=== PATIENT | male | born 1960 | race Hispanic/Latino ===

== ENCOUNTER 2020-12-14 16:03 | Outpatient (AMBR) | payer MEDICAID, SELFPAY ==
--- NOTE | 2020-12-10 10:40 | PTNOTE_ITS ---
PT OP Initial Eval Patient Information Visit Reasons: Thoracic Spondylosis Medical Diagnosis: M47.814 Treatment Dx #1: back pain Date of Onset: 15 yrs ago Initial Assessment Subjective Pt is 60 yr old male who reports onset of thoracolumbar kyphosis that started about 15 yrs ago. He reports that it is not working for many years due to this problem and he is unable to lift things and most movements are difficult or impossible. ADL's such as dressing, HH chores he is unable to do. PMH: lumbar disc problems Imaging: he brought Xray and MRI discs to review Pt goal: how to stop the progress and how to improve it. Objective Thoracolumbar ArOM: FB: 4 from floor Extension: stuck in kyphosis Strength: quads:4+/5 HS: 4+/5 Observation: T/L is kyphotic TTP: moderate of L/S paraspinals Assessment Pt presents with T/L spine reversed curve into kyphosis and limited extension ROM. Pt requires skilled therapy in order to decrease pain and improve ROM. Short Term and Senior Living Goals 1. Ind with HEP 2. Improved trunk extension ROM to neutral in standing 3. Decreased TTP of L/S paraspinals from mod to min Treatment Plan 1. Manual therapy 2. Therex 3. Modalities as indicated, moist heat pack, ice, electrical stimulation, mechanical traction Frequency and Duration 2x a week for 6 weeks Certification Dates: 12/10/20 to 03/11/21 Office Procedures PT Treatments PT Date of Service: 12/10/20 OP PT Eval Mod Complex 30 minutes: Yes
--- NOTE | 2020-12-14 18:02 | PT.ODAYNRPT ---
PT Outpatient Daily Note Date of Service: 12/14/20 OP Daily Note Visit Reasons: Thoracic Spondylosis Outpatient Physical Therapy Treatment Date: 12/14/20 Subjective: Same as time of evaluation Objective: See f/S for therex Mechanical traction L/s x7' at 40 lbs Assessment: Pt has attended 03/27 Rx visits and had good response to therapy interventions based on extending the thoracolumbar spine. Pt would benefit from continued therapy in order to decrease pain and meet goals. Plan: Request additional visits x11 Office Procedures PT Treatments PT Date of Service: 12/10/20 OP PT Eval Mod Complex 30 minutes: Yes PT Treatments PT Date of Service: 12/14/20 Therapeutic Exercise 30 minutes: Yes
== END 2020-12-24 23:59 | disposition home or self-care (01) ==
PROVIDERS: PCP Nurse Practitioner Primary Care; Referring Provider Nurse Practitioner Primary Care; Visit Provider Nurse Practitioner Primary Care
DX: M47.814 Spondylosis without myelopathy or radiculopathy, thoracic region (principal); M54.6 Pain in thoracic spine; Z76.89 Persons encountering health services in other specified circumstances
CPT/HCPCS: 97110; 97162